=== PATIENT | female | born 1955 | race Caucasian/White ===

== ENCOUNTER → 2016-09-19 | Outpatient (CLI) | payer BC ==
[~2016-09-19] MED LIST: GASTROGRAFIN SOLUTION 30ML (Q9963) As Ordered ONE; READI-CAT 2 As Ordered ONE
--- NOTE | 2016-09-19 11:53 | REP ---
Clinical: History of rectal cancer with partial rectosigmoid resection. Comparison: 07/19/2016. Findings: The lung bases are well aerated and clear without pulmonary parenchymal consolidation, nodule or mass. No pleural effusion/reaction. Visualized portions of the heart and pericardium normal. Liver, spleen, pancreas, bilateral adrenal glands and kidneys are normal for noncontrast evaluation. The patient is status post cholecystectomy as well as abdominal surgery including partial resection and anastomosis at the level of the distal rectosigmoid colon. Scattered diverticula noted without acute diverticulitis. There is no evidence for bowel obstruction. Very subtle fat stranding is identified at the region of the hepatic flexure (images 47 - 57) which is nonspecific and may represent sequelae of prior colitis. At the level of the prior partial resection and anastomoses there is surrounding pericolonic stranding as well as small foci of what appeared to be extraluminal, but contained gas (images 114 - 127) which likely represent sequelae of prior surgery. These findings can not be compared to prior examination as previous exam was performed prior to surgery and cannot be used as baseline. No definite significant adenopathy or recurrent mass lesion is appreciated. Partially calcified retroperitoneal lymph nodes are similar to prior examination and may represent sequelae of prior therapy or chronic granulomas disease. Further evaluation of the pelvis demonstrates normal partially collapsed bladder and age-appropriate uterus/adnexa. No ascites. Soft tissue stranding in the midline anterior abdominal wall likely represents postsurgical granulation tissue (images 84 - 105). Musculoskeletal structures demonstrate age-related degenerative changes without focal osseous abnormality. Atherosclerotic changes to the aorta and common iliac arteries noted without aneurysm. Impression: 1. Postsurgical changes as described above predominate within the pelvis and adjacent to the site of prior distal rectosigmoid resection/anastomoses related to neoplasm. No postsurgical baseline CT is available for comparison and while these findings likely reflect postsurgical changes, metastatic disease and/or recurrence cannot definitively be excluded. Follow-up examination may be warranted. 2. Partially calcified retroperitoneal lymph node similar to prior examination may reflect sequelae of prior therapy. Signed by Al Richard MD 09/19/2016 11:44 A
== END ==
LOC: M RAD 10:04
PROVIDERS: ATTEND Internal Medicine
DX: C20 Malignant neoplasm of rectum (principal)
CPT/HCPCS: 74176; Q9963

== ENCOUNTER → 2017-04-05 | Outpatient (CLI) | payer BC ==
[~2017-04-05] MED LIST changes: +ISOVUE-370 76% 100ML VIAL (Q9967) As Ordered ONE; -READI-CAT 2 As Ordered ONE
[2017-04-05 13:25] LABS: BASO % 1.2 % (0.0-1.0); EOS # 0.1 K/mm3 (0.0-0.50); EOS % 3.6 % (0.0-3.0); LYMPH # 0.5 K/mm3 (1.5-4.5); LYMPH % 11.9 % (24.0-44.0); MEAN CORPUSCULAR HEMOGLOBIN 32.8 pg (27.0-33.0); MEAN CORPUSCULAR HGB CONC 34.1 g/dl (32.0-36.5); MEAN CORPUSCULAR VOLUME 96.1 fl (80.0-96.0); MONO # 0.4 K/mm3 (0.0-0.8); MONO % 12.7 % (0.0-5.0); NEUTROPHILS # 2.1 K/mm3 (1.8-7.7); NEUTROPHILS % 65.3 % (36.0-66.0); RED CELL DISTRIBUTION WIDTH 16.3 % (11.5-14.5); WHITE BLOOD COUNT 3.2 K/mm3 (4.0-10.0)
[2017-04-05 13:34] LABS: ALBUMIN/GLOBULIN RATIO 0.86 (1.00-1.93); ALKALINE PHOSPHATASE 88 U/L (45-117); ALT/SGPT 29 U/L (12-78); ANION GAP 9 MEQ/L (8-16); AST/SGOT 33 U/L (15-37); BILIRUBIN,TOTAL 0.3 MG/DL (0.2-1.0); BLOOD UREA NITROGEN 5 MG/DL (7-18); CALCIUM LEVEL 9.1 MG/DL (8.8-10.2); CARBON DIOXIDE LEVEL 29 MEQ/L (21-32); CHLORIDE LEVEL 102 MEQ/L (98-107); CREATININE FOR GFR 0.75 MG/DL (0.55-1.02); GLOMERULAR FILTRATION RATE > 60.0 (>45); GLUCOSE, FASTING 101 MG/DL (80-110); POTASSIUM SERUM 3.9 MEQ/L (3.5-5.1); SODIUM LEVEL 140 MEQ/L (136-145); TOTAL PROTEIN 6.5 GM/DL (6.4-8.2)
[2017-04-06 12:08] LABS: CARCINOEMBRYONIC ANTIGEN 1.6 NG/ML (<2.5)
--- NOTE | 2017-04-06 14:33 | REP ---
Clinical: Rectal carcinoma for restaging. Technique: Axial contrast enhanced images from the lung bases to the pubic symphysis new oozing oral and 100 ml Isovue 370 intravenous contrast material with precontrast and delayed images of the abdomen as well as coronal and sagittal re-formations. Comparison: 07/19/2016. Findings: Lung bases are clear. Visualized heart and pericardium within normal limits. Liver, spleen, pancreas, bilateral adrenal glands and kidneys are normal. The patient is status post cholecystectomy. The enteric system is without obstruction or definite acute inflammatory process. Subtle mural thickening involving the sigmoid colon with subtle stranding in the adjacent pelvis and evidence for prior partial sigmoid resection most compatible with post radiation type changes. Collapsed bladder is unremarkable. Uterus and adnexa are normal for age. Chronic calcified lesion in the posterior left pb pelvis (image 107) remains unchanged. Atherosclerotic changes to the aorta and vasculature noted without aneurysm. Multiple calcified retroperitoneal lymph nodes consistent with post-therapeutic change. Post surgical granulomatous changes in the periumbilical subcutaneous tissue. No ascites. No free air. No obvious acute adenopathy or mass lesion identified. Musculoskeletal structures demonstrate degenerative changes without focal osseous abnormality. Impression: 1. Postradiation, post-therapeutic and postsurgical changes as described above. No evidence for acute adenopathy, new mass lesion, or ascites appreciated. 2. Chronic changes as described above. Signed by Al Richard MD 04/06/2017 12:08 A
--- NOTE | 2017-04-06 14:33 | REP ---
Clinical: Rectal carcinoma for restaging. Technique: Axial contrast enhanced images from the thoracic inlet to the upper abdomen using 100 ml Isovue 370 intravenous contrast material with coronal and sagittal re-formations. Comparison: 07/19/2016. Findings: The bilateral lung carrillo are well-aerated, symmetric and clear. No focal consolidation, nodule or mass lesion. No pleural effusion/reaction or pneumothorax. Tracheobronchial tree is patent. No axillary, hilar, or mediastinal adenopathy. Atherosclerotic changes to the coronary arteries and thoracic aorta noted without aortic aneurysm, cardiomegaly, or pericardial effusion. Right-sided [id number] with tip in the SVC. Surrounding musculoskeletal structures without focal osseous abnormality. Impression: No acute mediastinal or pleuroparenchymal process appreciated. Signed by Al Richard MD 04/05/2017 11:56 P
== END ==
LOC: M LAB 12:15 → M RAD 12:15
PROVIDERS: ATTEND Internal Medicine
DX: C20 Malignant neoplasm of rectum (principal)
CPT/HCPCS: 36415; 71260; 74178; 80053; 82378; 85027; Q9963; Q9967

== ENCOUNTER → 2017-07-05 | Outpatient (CLI) | payer BC | LOC: M LAB 10:38 | PROVIDERS: ATTEND Family Medicine | DX: Z00.00 Encounter for general adult medical examination without abnormal findings (principal); I10 Essential (primary) hypertension; Z23 Encounter for immunization; C20 Malignant neoplasm of rectum ==

== ENCOUNTER → 2017-07-05 | Outpatient (CLI) | payer BC ==
[2017-07-05 11:56] LABS: BASO # 0.1 10^3/uL (0.0-0.2); BASO % 0.9 % (0.0-1.0); EOS # 0.2 10^3/uL (0.0-0.50); EOS % 3.5 % (0.0-3.0); IMMATURE GRANULOCYTE % 0.3 % (0-0); LYMPH # 0.5 10^3/uL (1.5-4.5); MEAN CORPUSCULAR HEMOGLOBIN 31.9 pg (27.0-33.0); MEAN CORPUSCULAR HGB CONC 33.3 g/dl (32.0-36.5); MONO # 0.7 10^3/uL (0.0-0.8); MONO % 10.6 % (0.0-5.0); NEUTROPHILS % 76.7 % (36.0-66.0); PLATELET COUNT, AUTOMATED 209 10^3/uL (150-450); RED CELL DISTRIBUTION WIDTH 12.6 % (11.5-14.5); WHITE BLOOD COUNT 6.5 10^3/uL (4.0-10.0)
[2017-07-05 12:33] LABS: ALBUMIN 3.5 GM/DL (3.2-5.2); ALBUMIN/GLOBULIN RATIO 0.97 (1.00-1.93); ALKALINE PHOSPHATASE 74 U/L (45-117); ALT/SGPT 22 U/L (12-78); ANION GAP 5 MEQ/L (8-16); AST/SGOT 15 U/L (7-37); BILIRUBIN,TOTAL 0.3 MG/DL (0.2-1.0); BLOOD UREA NITROGEN 12 MG/DL (7-18); CALCIUM LEVEL 9.3 MG/DL (8.8-10.2); CARBON DIOXIDE LEVEL 36 MEQ/L (21-32); CHLORIDE LEVEL 100 MEQ/L (98-107); CREATININE FOR GFR 0.65 MG/DL (0.55-1.02); GLOMERULAR FILTRATION RATE > 60.0 (>45); GLUCOSE, FASTING 85 MG/DL (80-110); SODIUM LEVEL 141 MEQ/L (136-145); TOTAL PROTEIN 7.1 GM/DL (6.4-8.2)
--- NOTE | 2017-07-05 13:12 | REP ---
Clinical: History of rectal carcinoma for restaging and follow-up. Technique: Axial contrast enhanced images from the lung bases to the pubic symphysis using oral (per protocol) and 100 ml Isovue 370 intravenous contrast material with precontrast images of the abdomen as well as coronal and sagittal re-formations. Comparison: 04/05/2017. Findings: The lung bases are clear. Visualized heart and pericardium are normal. Liver, spleen, pancreas, bilateral adrenal glands and kidneys are normal. The patient is status post cholecystectomy. The enteric system is without obstruction or acute inflammatory process. There is evidence for partial resection and anastomoses at the rectosigmoid level without adjacent mass to suggest recurrence. There is nonspecific chronic and/or inflammatory stranding within the pelvis extending to the level of the rectum without pelvic fluid or drainable collection. Small pelvic lymph nodes cannot be excluded but no obvious, significant adenopathy or pelvic mass lesion is appreciated. The uterus and adnexa are grossly normal and stable. No ascites. No free air. Partially calcified retroperitoneal lymph nodes likely represent post-therapeutic type changes. Atherosclerotic changes of the aorta and vasculature noted without aneurysm. Musculoskeletal structures demonstrate degenerative changes without focal osseous abnormality. Midline periumbilical scar remains stable. Impression: Stranding in the pelvis and small pelvic lymph nodes are nonspecific findings and should be correlated with possible prior radiation therapy. There is no evidence for recurrent lesion at the site of anastomosis and no significant adenopathy is appreciated. No free fluid or drainable collection. Signed by Al Richard MD 07/05/2017 01:04 P
[2017-07-06 09:36] LABS: CARCINOEMBRYONIC ANTIGEN 1.2 NG/ML (<2.5)
== END ==
LOC: M RAD 10:54
PROVIDERS: ATTEND Internal Medicine
DX: C20 Malignant neoplasm of rectum (principal)
CPT/HCPCS: 74178; 80053; 82378; 85027; Q9963; Q9967

== ENCOUNTER → 2018-01-08 | Outpatient (CLI) | payer BC ==
[~2018-01-08] MED LIST changes: +GASTROGRAFIN SOLUTION 30ML (Q9963) As Ordered; -GASTROGRAFIN SOLUTION 30ML (Q9963) As Ordered ONE; +ISOVUE-370 76% 100ML VIAL (Q9967) As Ordered; -ISOVUE-370 76% 100ML VIAL (Q9967) As Ordered ONE
== END ==
LOC: M RAD 10:59
DX: C20 Malignant neoplasm of rectum (principal); R19.7 Diarrhea, unspecified
CPT/HCPCS: Q9963

== ENCOUNTER → 2018-07-12 | Outpatient (CLI) | payer BC | LOC: M RAD 11:30 | DX: C20 Malignant neoplasm of rectum (principal); R19.7 Diarrhea, unspecified; R59.0 Localized enlarged lymph nodes | CPT/HCPCS: Q9963 ==

== ENCOUNTER → 2018-07-13 | Outpatient (CLI) | payer BC | LOC: M WUC 16:18 | DX: M20.11 Hallux valgus (acquired), right foot (principal); M19.071 Primary osteoarthritis, right ankle and foot; M79.674 Pain in right toe(s) | CPT/HCPCS: 73660 ==

== ENCOUNTER → 2018-07-31 | Outpatient (CLI) | payer BC ==
--- NOTE | 2018-07-31 14:41 | REP ---
PET/CT: HISTORY: Initial staging, malignant neoplasm of the rectum. COMPARISONS: Comparison CT study July 12, 2018. TECHNIQUE: 44 minutes following the intravenous injection of a 8.6 mCi dose of F-18 FDG, three-dimensional PET scintigraphy is acquired from the skull base to the proximal thighs. Triplanar noncontrast CT scanning is acquired through the same anatomic range for attenuation correction, and image registration with scan parameters optimized to minimize radiation exposure to the patient. PET scintigraphy and CT datasets were fused and displayed on a workstation with multiplanar and projection display capability. PET/CT FINDINGS: The recently identified right pericaval retroperitoneal lymphadenopathy is noted to be hypermetabolic on PET-CT study. Maximum standard uptake value is 5.9. There is a smaller normal size right pericaval lymph node with maximum standard uptake value 3.0. The right common iliac chain lymphadenopathy identified recently is also hypermetabolic. Maximum standard uptake value in this is 8.3. There are multiple densely calcified non hypermetabolic lymph nodes as seen on CT study. No other abnormal hypermetabolic uptake is seen in the abdomen or pelvis. No abnormal hypermetabolic uptake is noted in the liver or spleen. No adrenal hypermetabolic uptake is seen. The patient is status post cholecystectomy. In the chest, there is no abnormal hilar or mediastinal or pulmonary parenchymal hypermetabolic uptake. Head and neck soft tissues are unremarkable. There is a right-sided [id number] catheter. IMPRESSION: Right pericaval retroperitoneal and right common iliac lymphadenopathy is hypermetabolic. No other hypermetabolic uptake is seen. Non hypermetabolic densely calcified and nodes are noted as seen previously. Electronically Signed by Bhanu Bravo MD 07/31/2018 03:13 P
== END ==
LOC: M PLARAD 09:52
PROVIDERS: ATTEND Internal Medicine
DX: C20 Malignant neoplasm of rectum (principal); R19.7 Diarrhea, unspecified
CPT/HCPCS: 78815; A9552

== ENCOUNTER → 2018-10-28 | Outpatient (CLI) | payer BC ==
[~2018-10-28] MED LIST changes: -GASTROGRAFIN SOLUTION 30ML (Q9963) As Ordered; +GASTROGRAFIN SOLUTION 30ML (Q9963) As Ordered ONE; -ISOVUE-370 76% 100ML VIAL (Q9967) As Ordered; +ISOVUE-370 76% 125ML VIAL (Q9967 PER ML) As Ordered ONE
--- NOTE | 2018-10-28 11:53 | REP ---
CT ABDOMEN AND PELVIS WITH IV AND ORAL CONTRAST: HISTORY: Restaging rectal carcinoma. COMPARISON: PET/CT July 31, 2018. Comparison CT abdomen and pelvis is from July 12, 2018. CT CONTRAST DOSE: 100 mL of intravenous Isovue 370. CT FINDINGS: Preliminary digital sales secretary radiograph shows an unremarkable bowel gas pattern. The lung bases remain clear. No pulmonary nodule or infiltrate is seen in the lung bases. There is moderate diffuse fatty infiltration of the liver again noted with some areas of sparing in the left lobe. The gallbladder is surgically absent with clips in the gallbladder fossa. No focal hepatic mass lesion is seen. The spleen is normal in size homogeneous in texture. No adrenal lesion is observed. No pancreatic abnormality is observed. The kidneys enhance symmetrically and are morphologically intact. There are scattered calcified retroperitoneal lymph nodes again noted unchanged. The previously noted hypermetabolic nodes in the pericaval lymph node chain and right iliac lymph node chain are again seen. The pericaval lymph node measured 20 x 18 mm previously, today its dimensions are 17 x 13 mm. The right common iliac lymph node seen previously has decreased in size as well. There are adjacent normal-sized a right iliac lymph nodes unchanged. No new adenopathy is appreciated. Anastomotic suture line is visible in the rectum. Normal-sized inguinal lymph nodes are again noted. Small and large bowel loops are otherwise unremarkable. No bony lesion is seen. IMPRESSION: Slight interval decrease in the size of the periaortic lymph node noted previously. Interval decrease in the size of the right common iliac chain lymph node as well. No new adenopathy. Electronically Signed by Bhanu Bravo MD 10/28/2018 12:10 P
== END ==
LOC: M RAD 08:45
PROVIDERS: ATTEND Internal Medicine
DX: C20 Malignant neoplasm of rectum (principal); R19.7 Diarrhea, unspecified
CPT/HCPCS: 74177; Q9963; Q9967

== ENCOUNTER → 2019-01-06 | Outpatient (CLI) | payer BC ==
[~2019-01-06] MED LIST changes: +ISOVUE-370 76% 100ML VIAL (Q9967) As Ordered ONE; -ISOVUE-370 76% 125ML VIAL (Q9967 PER ML) As Ordered ONE
--- NOTE | 2019-01-08 06:39 | REP ---
Clinical: Restaging rectal carcinoma. Comparison: 10/28/2018, 07/12/2018 Technique: Axial contrast enhanced images from the thoracic inlet to the upper abdomen with coronal and sagittal re-formations using 100 ml Isovue 370 intravenous contrast material. Findings: Bilateral lung carrillo are well-aerated and clear. No consolidation, significant nodule or mass lesion. No pleural effusion. No pneumothorax. Tracheobronchial tree is patent. No axillary, hilar, or mediastinal adenopathy. Mediastinum demonstrates minimal atherosclerotic changes to the thoracic aorta and coronary arteries without aortic aneurysm/dissection, cardiomegaly or pericardial effusion. Surrounding musculoskeletal structures are intact. Impression: No acute mediastinal or pleuroparenchymal process appreciated. Specifically, no evidence for metastatic disease. Electronically Signed by Al Richard MD 01/08/2019 06:31 A
--- NOTE | 2019-01-08 06:50 | REP ---
Clinical: Restaging rectal carcinoma. Comparison: 10/28/2018, 07/12/2018 Technique: Axial contrast enhanced images from the lung bases to the pubic symphysis using oral (per protocol) and 100 ml Isovue 370 intravenous contrast material along with precontrast and delayed images of the abdomen as well as coronal and sagittal re-formations. Findings: Fatty infiltration to the liver noted without focal hepatic lesion. Spleen, pancreas, bilateral adrenal glands, and kidneys are normal. Evidence of prior cholecystectomy. The enteric system is without obstruction or acute inflammatory process. Partial resection and anastomoses at the rectosigmoid is again identified. Pelvis demonstrates normal bladder and age-appropriate uterus/adnexa. No ascites. No focal inflammatory stranding is appreciated. Primarily calcified retroperitoneal lymph nodes are identified with few nonspecific noncalcified retroperitoneal and pelvic lymph nodes measuring up to approximately 9 mm. No obvious recurrent mass lesion. Atherosclerotic changes to the aorta noted without aneurysm or dissection. Musculoskeletal structures demonstrate degenerative changes without focal osseous abnormality. Impression: 1. Few nonspecific retroperitoneal and pelvic lymph nodes measuring up to approximately 9 mm. 2. Evidence of prior cholecystectomy and partial distal sigmoid resection with anastomosis at the rectosigmoid level. No obvious recurrent focal mass lesion. 3. No ascites. Electronically Signed by Al Richard MD 01/08/2019 06:42 A
== END ==
LOC: M RAD 12:35
PROVIDERS: ATTEND Internal Medicine
DX: C20 Malignant neoplasm of rectum (principal); R19.7 Diarrhea, unspecified; Z90.49 Acquired absence of other specified parts of digestive tract; Z98.0 Intestinal bypass and anastomosis status
CPT/HCPCS: 71260; 74178; Q9963; Q9967

== ENCOUNTER → 2019-04-15 | Outpatient (CLI) | payer BC ==
[~2019-04-15] MED LIST changes: -ISOVUE-370 76% 100ML VIAL (Q9967) As Ordered ONE
--- NOTE | 2019-04-15 16:33 | REP ---
CT of the abdomen and pelvis without and with contrast Indication: Restaging metastatic rectal cancer. Comparison: CT of the abdomen pelvis of 01/06/[address] of 07/31/2018. Technique: Axial CT of the abdomen was performed without contrast. Following the uneventful intravenous administration of 100 ml Isovue 370, CT of the abdomen pelvis with contrast was performed. Oral contrast media was administered. Coronal and sagittal reformatted images were provided. Findings: The liver is normal in size and without focal lesion. The gallbladder surgically absent. The spleen, adrenal glands, pancreas and kidneys are within normal limits. There is fullness of the renal pelves. There is no hydronephrosis or nephrolithiasis. There are atherosclerotic calcifications of the abdominal aorta and its branches. There are calcified retroperitoneal lymph nodes, similar to prior. There are no newly enlarged lymph nodes. The stomach is partially distended and unremarkable. Loops of small and large bowel are incompletely opacified but normal in caliber. The distal colonic anastomoses is intact. There is an unchanged calcified mass within the left hemipelvis. There is no intraperitoneal free air or free fluid. The uterus and ovaries are unremarkable. The urinary bladder is partially distended. There is lumbar spondylosis. No suspicious focal osseous lesion is identified. Impression: Prior colonic resection with intact anastomoses. Similar appearance of calcified retroperitoneal lymph nodes. No evidence of recurrence within the abdomen or pelvis. Electronically Signed by Lexie Reno MD 04/15/2019 04:24 P
--- NOTE | 2019-04-15 16:33 | REP ---
CT of the chest with contrast Indication: Restaging metastatic rectal cancer. Comparison: CT chest of 01/06/2019. Technique: CT of the chest was performed from the thoracic inlet to the upper abdomen following the uneventful intravenous administration of 100 ml Isovue 370. Coronal and sagittal soft tissue reformatted images and axial lung reformatted images were provided. Findings: The tip of a central venous catheter terminates within the superior vena cava. Heart size is normal. There are coronary calcifications. No pericardial effusion. The upper airway is patent. There is no suspicious pulmonary nodule. The lungs are clear. There is no pleural effusion. There is no axillary or mediastinal lymphadenopathy. The there is partially imaged. No suspicious focal osseous lesion. Impression: No evidence of metastatic disease within the chest. Electronically Signed by Lexie Reno MD 04/15/2019 04:23 P
== END ==
LOC: M RAD 12:24
PROVIDERS: ATTEND Internal Medicine Hematology & Oncology
DX: C20 Malignant neoplasm of rectum (principal)
CPT/HCPCS: 71260; 74178; Q9963

== ENCOUNTER → 2019-06-14 | Outpatient (CLI) | payer BC ==
[2019-06-14 16:40] LABS: BASO # 0.1 10^3/uL (0.0-0.2); BASO % 0.8 % (0.0-1.0); EOS # 0.4 10^3/uL (0.0-0.5); EOS % 6.6 % (0.0-3.0); LYMPH # 1.1 10^3/uL (1.5-5.0); LYMPH % 16.1 % (24.0-44.0); MEAN CORPUSCULAR HEMOGLOBIN 32.9 pg (27.0-33.0); MEAN CORPUSCULAR HGB CONC 32.6 g/dl (32.0-36.5); MEAN CORPUSCULAR VOLUME 101.2 fl (80.0-96.0); MONO # 1.1 10^3/uL (0.0-0.8); MONO % 17.3 % (0.0-5.0); NEUTROPHILS # 3.9 10^3/uL (1.5-8.5); NEUTROPHILS % 58.9 % (36.0-66.0); PLATELET COUNT, AUTOMATED 184 10^3/uL (150-450); RED BLOOD COUNT 4.25 10^6/uL (4.00-5.40); WHITE BLOOD COUNT 6.5 10^3/uL (4.0-10.0)
[2019-06-14 16:49] LABS: ALBUMIN 3.3 GM/DL (3.2-5.2); ALT/SGPT 31 U/L (12-78); BILIRUBIN,TOTAL 0.3 MG/DL (0.2-1.0); BLOOD UREA NITROGEN 9 MG/DL (7-18); CARBON DIOXIDE LEVEL 33 MEQ/L (21-32); CHLORIDE LEVEL 104 MEQ/L (98-107); CREATININE FOR GFR 0.67 MG/DL (0.55-1.30); GLOMERULAR FILTRATION RATE > 60.0 (>45); GLUCOSE, FASTING 98 MG/DL (70-100); MAGNESIUM LEVEL 1.7 MG/DL (1.8-2.4); POTASSIUM SERUM 3.8 MEQ/L (3.5-5.1); SODIUM LEVEL 143 MEQ/L (136-145); TOTAL PROTEIN 6.7 GM/DL (6.4-8.2)
== END ==
LOC: M WUC 15:12
PROVIDERS: ATTEND Internal Medicine Hematology & Oncology
DX: C20 Malignant neoplasm of rectum (principal); R19.7 Diarrhea, unspecified

== ENCOUNTER → 2019-07-21 | Outpatient (CLI) | payer BC ==
[~2019-07-21] MED LIST changes: +ISOVUE-370 76% 100ML VIAL (Q9967) As Ordered ONE
--- NOTE | 2019-07-21 14:56 | REP ---
CT CHEST WITH IV CONTRAST: TECHNIQUE: Axial contrast enhanced images from the thoracic inlet to the upper abdomen using 100 mL Isovue 370 intravenous contrast material with multiplanar reformations. COMPARISON: 04/15/2019. The lungs are free of infiltrate. No suspicious nodular opacity is seen. There is no mediastinal, hilar, or chest wall lymphadenopathy. There is no pleural or pericardial effusion. Heart is upper limits of normal in size. There is no evidence of aneurysm of the thoracic aorta with mild atherosclerotic calcification. There are degenerative changes of the spine. IMPRESSION: No evidence of pulmonary nodule, mass or adenopathy, with no change since prior study 04/15/2019. Electronically Signed by Ender Abarca MD 07/22/2019 03:56 P
--- NOTE | 2019-07-21 15:12 | REP ---
CT ABDOMEN AND PELVIS WITH ORAL AND IV CONTRAST: TECHNIQUE: Axial contrast enhanced images from the lung bases to the pubic symphysis using 100 mL Isovue 370 intravenous contrast material with multiplanar reformations. COMPARISON: Multiple prior exams, most recently 04/15/2019. No mass is seen in the liver. There appears to be some degree of fatty infiltration. The patient has had a prior cholecystectomy. There is no biliary dilatation. The spleen is normal in size with no intrinsic abnormality. The adrenal glands are normal. No pancreatic mass is seen. The kidneys demonstrate no mass or hydronephrosis. There is moderate atherosclerotic calcification of the abdominal aorta without aneurysm. Calcified retroperitoneal lymph nodes are again noted unchanged. No new adenopathy is seen. No free air or free fluid is seen. No bowel wall thickening is seen. Rectosigmoid anastomosis appears unremarkable. No pelvic mass is seen. Urinary bladder is not well-distended and not well evaluated. There are degenerative changes of the spine. IMPRESSION: No new mass or adenopathy. No significant change compared to prior studies. Electronically Signed by Ender Abarca MD 07/22/2019 03:56 P
== END ==
LOC: M RAD 12:12
PROVIDERS: ATTEND Internal Medicine Hematology & Oncology
DX: C20 Malignant neoplasm of rectum (principal); R19.7 Diarrhea, unspecified
CPT/HCPCS: 71260; 74177; Q9963; Q9967

== ENCOUNTER → 2019-10-27 | Outpatient (CLI) | payer BC ==
--- NOTE | 2019-10-27 14:13 | REP ---
Clinical: Restaging metastatic colon cancer. Technique: Axial contrast enhanced images from the thoracic inlet to the upper abdomen with coronal and sagittal re-formations using 100 ml Isovue 370 intravenous contrast material. Comparison: 07/21/2019. Findings: The bilateral lung carrillo are well-aerated. A 1.5 cm nodular density along the anterobasilar right middle lobe (image 63) versus focal scarring cannot be excluded or differentiated and represents a change from prior examinations. No further consolidation, nodule or mass lesion. No pleural effusion. No pneumothorax. Tracheobronchial tree is patent. No obvious adenopathy. Mediastinum demonstrates atherosclerotic changes to the thoracic aorta and coronary arteries without aortic aneurysm, dissection or cardiomegaly. No pericardial effusion. Musculoskeletal structures demonstrate stable degenerative changes. Impression: 1. 1.5 cm nodular density versus scarring in the anterobasilar right middle lobe. Short-term follow-up examination is recommended. 2. No further acute mediastinal or pleuroparenchymal process appreciated. Electronically Signed by Al Richard MD 10/27/2019 02:05 P
--- NOTE | 2019-10-27 14:17 | REP ---
Clinical: Restaging metastatic colon cancer. Technique: Axial contrast enhanced images from the lung bases to the pubic symphysis using oral (per protocol) and 100 ml Isovue 370 intravenous contrast material with coronal and sagittal re-formations as well as delayed images of the abdomen. Comparison: 07/21/2019. Findings: Fatty infiltration to the liver noted without focal hepatic lesion. Spleen, pancreas, bilateral adrenal glands and kidneys are normal. Prior cholecystectomy noted. The enteric system is without obstruction or acute inflammatory process. Evidence for prior partial sigmoid resection and anastomoses identified in the pelvis without adjacent mass or adenopathy. Pelvis demonstrates normal bladder and age-appropriate uterus/adnexa. No ascites. No free air. No intraperitoneal or retroperitoneal adenopathy. Calcified retroperitoneal lymph nodes consistent with prior therapy. Atherosclerotic changes to the aorta and vasculature without aneurysm or dissection. Musculoskeletal structures demonstrate degenerative changes. Impression: 1. No obvious metastatic disease or recurrence. 2. Hepatic steatosis. 3. No further acute abdominopelvic pathology appreciated. Electronically Signed by Al Richard MD 10/27/2019 02:09 P
== END ==
LOC: M RAD 12:08
PROVIDERS: ATTEND Internal Medicine Hematology & Oncology
DX: C20 Malignant neoplasm of rectum (principal); R19.7 Diarrhea, unspecified
CPT/HCPCS: 71260; 74177; Q9963; Q9967

== ENCOUNTER → 2019-11-11 | Outpatient (CLI) | payer BC ==
--- NOTE | 2019-11-11 15:23 | REP ---
PET/CT: HISTORY: Restaging rectal cancer. Metastatic colon carcinoma on chemotherapy. COMPARISONS: Comparison PET/CT study July 31, 2018. TECHNIQUE: 55 minutes following the intravenous injection of a 9.01 mCi dose of F-18 FDG, three-dimensional PET scintigraphy is acquired from the skull base to the proximal thighs. Triplanar noncontrast CT scanning is acquired through the same anatomic range for attenuation correction, and image registration with scan parameters optimized to minimize radiation exposure to the patient. PET scintigraphy and CT datasets were fused and displayed on a workstation with multiplanar and projection display capability. PET/CT FINDINGS: Head and neck soft tissues are unremarkable. There is no evidence of axillary or supraclavicular hypermetabolic adenopathy. No hilar or mediastinal hypermetabolic adenopathy is seen. There is an air-fluid level in the thoracic esophagus question reflux. No abnormal hypermetabolic uptake is seen at the GE junction. In the abdomen and pelvis, normal hepatic, splenic, gastrointestinal, and genitourinary tracer distribution is seen. The previously noted hypermetabolic adenopathy has resolved. No abnormal hypermetabolic uptake is seen in the abdomen or pelvis. No abnormal pulmonary parenchymal hypermetabolic uptake is seen. No suspicious pulmonary parenchymal opacity is observed. No abnormal skeletal hypermetabolic uptake is seen. There is some arthropathy associated periarticular soft tissue uptake in the shoulders bilaterally. IMPRESSION: Negative PET scintigraphy. Previously noted sebastian hypermetabolic uptake has resolved. Electronically Signed by Bhanu Bravo MD 11/11/2019 04:37 P
== END ==
LOC: M PLARAD 09:06
PROVIDERS: ATTEND Internal Medicine Hematology & Oncology
DX: Z85.048 Personal history of other malignant neoplasm of rectum, rectosigmoid junction, and anus (principal); Z92.21 Personal history of antineoplastic chemotherapy
CPT/HCPCS: 78815; A9552

== ENCOUNTER → 2020-02-16 | Outpatient (CLI) | payer BC ==
[~2020-02-16] MED LIST changes: -ISOVUE-370 76% 100ML VIAL (Q9967) As Ordered ONE; +ISOVUE-370 76% 100ML VIAL As Ordered ONE
--- NOTE | 2020-02-16 13:35 | REP ---
REASON: History of metastatic colon carcinoma. All priors were reviewed, the latest is 10/27/2019. CONTRAST: 100 mL Isovue 370. The mediastinum and pulmonary melissa are stable showing no evidence of a mass or adenopathy. There are no pleural or pericardial effusions. The imaged osseous structures are stable and intact. Evaluation of the lung carrillo shows marked improvement/near solution and a small opacity in the inferior right middle lobe. The lung carrillo are essentially unchanged when compared to the 07/21/2019 exam. No new abnormal nodules, masses, or opacities are present. IMPRESSION: Improvement and stability as described above. Electronically Signed by Mani Stanford DO 02/16/2020 02:29 P
--- NOTE | 2020-02-16 13:43 | REP ---
REASON: Followup metastatic colon carcinoma. All priors were reviewed, the latest is 10/27/2019. CONTRAST: 100 mL Isovue 370. The liver, spleen, pancreas, adrenal glands and kidneys are unchanged. Once again, there is evidence of a regenerating nodule in the lateral segment of the left lobe of the liver. This was seen on the 04/15/2019 CT. No new enhancing hepatic lesions are present. The patient is status post cholecystectomy and appendectomy. The abdominal aorta and para-aortic regions are unchanged. Calcified para-aortic lymph nodes are noted status quo. The bowel loops and their mesenteries are essentially unchanged. Postop changes are again seen involving the sigmoid colon status quo. No free fluid or free air is seen in the abdomen or pelvis. There is no evidence of an intra-abdominal or intrapelvic mass or adenopathy. Bone window technique through the examination shows the osseous structures to be stable and intact. IMPRESSION: No significant change when compared to the prior exam as described above. There is no evidence of acute intra-abdominal or intrapelvic disease. Electronically Signed by Mani Stanford DO 02/16/2020 02:29 P
== END ==
LOC: M RAD 08:01
PROVIDERS: ATTEND Internal Medicine Hematology & Oncology
DX: C20 Malignant neoplasm of rectum (principal); R19.7 Diarrhea, unspecified; Z90.49 Acquired absence of other specified parts of digestive tract; Z90.89 Acquired absence of other organs
CPT/HCPCS: 71260; 74177; Q9963; Q9967

== ENCOUNTER → 2020-05-11 | Outpatient (CLI) | payer BC ==
--- NOTE | 2020-05-14 10:02 | REP ---
CT CHEST WITH IV CONTRAST: HISTORY: Rectal carcinoma. Metastatic colon cancer currently on maintenance therapy. Diarrhea. COMPARISON: Chest CT 02/16/2020 CT CONTRAST DOSE: 100ml of intravenous Isovue 370. CT FINDINGS: Digital preliminary hospital nursing assistant view is unremarkable. There is a right sided [id number] catheter. No pleural or pericardial effusion is seen. There is diffuse fatty infiltration to the liver. Air filled esophagus is noted at the time of the scan suggestive of reflux. No hilar or mediastinal mass or adenopathy is observed. No pulmonary mass lesion, infiltrate, or significant pulmonary nodule is appreciated. Mild pleuroparenchymal fibrosis persists in the right middle lobe unchanged from the 02/16/20 study. No bony destructive lesion is seen. No extra thoracic mass or adenopathy is appreciated. IMPRESSION: Stable pleuroparenchymal scarring right middle lobe. No new mass or adenopathy see. MTDD
--- NOTE | 2020-05-14 10:04 | REP ---
CT ABDOMEN AND PELVIS WITH IV AND ORAL CONTRAST HISTORY: Rectal carcinoma. Metastatic colon cancer currently on maintenance chemotherapy. Diarrhea. COMPARISON: Abdomen CT study February 16, 2020. CT CONTRAST DOSE: 100 mL of intravenous Isovue-[address] FINDINGS: There is mild to moderate diffuse fatty infiltration of the liver with a geographic area of sparing in the left lobe of the liver. This is unchanged. No focal splenic lesion or focal hepatic lesion seen. Normal adrenals are seen. No pancreatic mass or cyst is observed. The gallbladder is surgically absent. No periaortic or retroperitoneal mass or adenopathy is seen. There is a densely calcified granulomatous lymph node in the left common iliac lymph node chain which is unchanged. There are densely calcified granulomatous left periaortic lymph nodes also noted unchanged. Uterus is tipped somewhat to the right. No pelvic mass or adenopathy is seen. There is mural thickening in the right colon involving the cecum and ascending colon which may reflect some degree of enterocolitis. The distal ileum is not involved nor is any of the rest of the small bowel. The remaining colon shows no evidence of mural thickening. There is a rectal anastomotic suture line. No mass lesion is seen. Densely calcified enlarged lymph node is noted in the left external iliac lymph node chain unchanged from the comparison study and measuring 3.3 cm. No new adenopathy. No abdominal wall defect or bony destructive lesion. IMPRESSION: Stable iliac and periaortic lymph node calcifications. Fatty infiltration of the liver. No evidence of new mass or metastases or new adenopathy. There is mural thickening in the cecum and ascending colon which may reflect enterocolitis. No colonic mass lesion is observed. MTDD
== END ==
LOC: M RAD 11:51
PROVIDERS: ATTEND Internal Medicine Hematology & Oncology
DX: C20 Malignant neoplasm of rectum (principal); R19.7 Diarrhea, unspecified; R91.8 Other nonspecific abnormal finding of lung field; K76.0 Fatty (change of) liver, not elsewhere classified
CPT/HCPCS: 71260; 74177; Q9963; Q9967

== ENCOUNTER → 2020-08-16 | Outpatient (CLI) | payer BC ==
--- NOTE | 2020-08-16 14:38 | REP ---
INDICATION: RESTAGING MET RECTAL CA- WITH IV AND ORAL CONTRAST COMPARISON: 05/11/2020 TECHNIQUE: Axial contrast enhanced images from the thoracic inlet to the upper abdomen with subsequent CT of the abdomen and pelvis using 75 ml Isovue 370 intravenous contrast material. Coronal and sagittal reformations obtained. This CT examination was performed using the following dose reduction techniques: Automated exposure control, adjustment of mA and/or kv according to the patient's size, and use of iterative reconstruction technique. FINDINGS: The bilateral lung carrillo are relatively well aerated with minimal scattered scarring and small amounts of presumed posterior basilar and right middle lobe atelectasis. No significant consolidation, obvious nodule or mass lesion. No pleural effusion. No pneumothorax. Tracheobronchial tree is patent. Mediastinum demonstrates atherosclerotic changes to the thoracic aorta and coronary arteries. No adenopathy. Incidental small hiatal hernia. Musculoskeletal structures demonstrate degenerative changes without acute osseous abnormality. IMPRESSION: Minimal chronic findings and trace atelectasis. No suspicious consolidation, nodule or mass lesion. <Electronically signed by Al Richard > 08/16/20 0047
--- NOTE | 2020-08-16 14:49 | REP ---
INDICATION: RESTAGING MET RECTAL CA-WITH IV AND ORAL CONTRAST. COMPARISON: 05/11/2020 TECHNIQUE: Axial contrast-enhanced images from the lung bases to the pubic symphysis using oral and 100 cc Isovue 370 intravenous contrast material. Delayed images of the abdomen along with coronal and sagittal reformations obtained. This CT examination was performed using the following dose reduction techniques: Automated exposure control, adjustment of mA and/or kv according to the patient's size, and the use of iterative reconstruction technique. FINDINGS: Liver demonstrates diffuse fatty infiltration with presumed area of fatty sparing in the posterior aspect of the left hepatic lobe which is unchanged from prior examination. No further hepatic abnormalities are identified. Spleen, pancreas, bilateral adrenal glands and kidneys are normal. Evidence for prior cholecystectomy. The enteric system is without obstruction or acute inflammatory process. Pelvis demonstrates normal bladder and age-appropriate uterus/adnexa. No pelvic fluid. No ascites. No free air. No adenopathy. Atherosclerotic changes to the aorta noted without aneurysm or dissection. Surrounding musculoskeletal structures demonstrate degenerative changes without acute osseous abnormality. IMPRESSION: No acute abdominopelvic pathology appreciated. No evidence for recurrence or metastatic disease. <Electronically signed by Al Richard > 08/16/20 [id number]
== END ==
LOC: M RAD 11:51
PROVIDERS: ATTEND Internal Medicine Hematology & Oncology
DX: C20 Malignant neoplasm of rectum (principal); R19.7 Diarrhea, unspecified
CPT/HCPCS: 71260; 74177; Q9963; Q9967

== ENCOUNTER → 2020-11-10 | Outpatient (CLI) | payer BC ==
--- NOTE | 2020-11-15 04:13 | REP ---
INDICATION: RECTAL CANCER COMPARISON: Multiple examinations through 07/19/2016 TECHNIQUE: Axial contrast enhanced images from the thoracic inlet to the upper abdomen using 100 ml Isovue 370 intravenous contrast material followed by CT of the abdomen and pelvis. Coronal and sagittal reformations obtained. This CT examination was performed using the following dose reduction techniques: Automated exposure control, adjustment of mA and/or kv according to the patient's size, and use of iterative reconstruction technique. FINDINGS: The lung carrillo are well aerated. Respiratory motion artifact significantly limits evaluation. Relatively mild scattered chronic fibro atelectatic changes are suggested. Very small areas of opacity in the deep left sulcus and along the deep anterior margin of the right middle lobe is again appreciated which may be mildly increased from prior examinations. Findings less likely suggest active disease. No further parenchymal consolidation, or obvious nodule/mass. No effusion. No pneumothorax. Tracheobronchial tree is patent. No obvious axillary, hilar, or mediastinal adenopathy noted. Moderate stable atherosclerotic changes to the thoracic aorta and coronary arteries identified without aortic aneurysm or cardiomegaly. No pericardial effusion. The esophagus is again moderately air-filled/distended to the level of the gastroesophageal junction which is stable and essentially nonspecific. Surrounding musculoskeletal structures are intact. IMPRESSION: 1. Mildly progressive presumed fibroatelectatic changes in the deep anterior right middle lobe sulcus and along the left lower lobe. These findings much less likely represent active disease. 2. No further acute mediastinal or pleuroparenchymal process appreciated. No further consolidation, mass, effusion, or adenopathy. <Electronically signed by Al Richard > 11/15/20 [id number]
--- NOTE | 2020-11-15 04:29 | REP ---
INDICATION: RECTAL CANCER. COMPARISON: Multiple examinations dating through 07/19/2016. PET-CT dated 11/11/2019 TECHNIQUE: Axial contrast-enhanced images from the lung bases to the pubic symphysis using oral and 100 cc Isovue 370 intravenous contrast material. Delayed images of the abdomen along with coronal and sagittal reformations obtained. This CT examination was performed using the following dose reduction techniques: Automated exposure control, adjustment of mA and/or kv according to the patient's size, and the use of iterative reconstruction technique. FINDINGS: Liver again demonstrates fatty infiltration without focal hepatic lesion identified. Incidental area of focal fat sparing in the left hepatic lobe adjacent to the ligamentum is again noted and unchanged. Prior cholecystectomy. The spleen, pancreas, bilateral adrenal glands and kidneys are normal. The enteric system including stomach, small, and large bowel appears stable/normal. Area of prior resection and anastomosis at the rectosigmoid level appears normal.. Pelvis demonstrates normal bladder and uterus/adnexa. Prominent cervix is again noted and unchanged.. No ascites. No free air. No acute intraperitoneal or retroperitoneal adenopathy. Chronic calcified retroperitoneal/periaortic and pelvic lymph nodes are unchanged. Abdominal aorta and vasculature again demonstrate atherosclerotic changes without aneurysm or dissection. Musculoskeletal structures are intact and without acute osseous abnormality. IMPRESSION: 1. Hepatosteatosis with focal fatty sparing again noted. 2. No evidence for new mass lesion or metastatic disease. No acute adenopathy, ascites, or focal inflammatory stranding. <Electronically signed by Al Richard > 11/15/20 0429
== END ==
LOC: M RAD 11:17
PROVIDERS: ATTEND Internal Medicine Hematology & Oncology
DX: R19.7 Diarrhea, unspecified (principal); C20 Malignant neoplasm of rectum; K76.0 Fatty (change of) liver, not elsewhere classified; R91.8 Other nonspecific abnormal finding of lung field
CPT/HCPCS: 71260; 74177; Q9963; Q9967

== ENCOUNTER → 2021-03-01 | Outpatient (CLI) | payer BC ==
--- NOTE | 2021-03-01 19:06 | REP ---
INDICATION: RESTAGING METASTATIC RECTAL CA. COMPARISON: 11/10/2020, 08/16/2020 TECHNIQUE: BOLUS 100 ML ISOVUE 370 SCANNING THROUGH THE CHEST WITH CORONAL AND SAGITTAL RECONSTRUCTIONS PROVIDED. FINDINGS: Of the lung carrillo are well inflated. Some minor subsegmental atelectatic change medial segment right middle lobe at the anterior lung base. There is also some minimal atelectatic change inferior lingular segment at the anterior left lung base, stable there is no pleural effusion, parenchymal mass or acute infiltrate. There is some minor subsegmental atelectatic change deep sulcus lateral basal segment left lower lobe unchanged. Heart is not grossly enlarged. There is no specific chamber enlargement, pericardial thickening or effusion. There are some calcifications in coronary arteries. The aorta has calcifications at the arch and its descending portion without aneurysm or dissection. The main, right and left pulmonary arteries in the mediastinum are without filling defect. No pathologic sized mediastinal, hilar, axillary or supraclavicular adenopathy. The bone windows show the sternum, manubrium, medial clavicles, visualized portions of scapulae, humeral heads and ribs to be grossly intact. Bony thoracic spine region is unchanged without compression deformity or focal lesion. Marginal osteophytes at most endplates. Upper abdominal findings will be discussed in the CT abdomen pelvis report this date. IMPRESSION: 1. Some chronic atelectatic or fibrotic changes in the medial segment right middle lobe and inferior lingular segment the left anterior lung base as well as along the lateral basal segment of the left lower lobe but all stable. 2. No parenchymal nodule, acute infiltrate, mass, mediastinal or hilar adenopathy, acute bony destructive lesion or other significant finding. No evidence of intrathoracic metastatic disease. <Electronically signed by Jayesh Richardson > 03/01/21 [id number]
--- NOTE | 2021-03-01 19:48 | REP ---
INDICATION: RESTAGING METASTATIC RECTAL CA. COMPARISON: 11/10/2020, 08/16/2020, 05/11/2020 CT TECHNIQUE: Oral Gastrografin mixture per our bowel contrast protocol and bolus of 100 mL Isovue 370 scanning through the abdomen and pelvis. Coronal and sagittal reconstructions were provided and delayed imaging through the abdomen then performed. FINDINGS: CT abdomen: Liver is homogeneous in attenuation without discrete hepatic mass or intrahepatic biliary dilatation. No abnormal calcifications. Gallbladder absent. Spleen not enlarged and is also homogeneous. No ascites in the upper abdomen. Adrenal glands are normal. See no sign of hiatal hernia. Stomach filled with oral contrast and is unremarkable. Pancreas shows no mass, ductal dilatation or abnormal calcification. No peripancreatic adenopathy or fluid. Kidneys show extrarenal pelves bilaterally. No renal mass, cyst or stone. No perinephric fluid. Ureters show normal course to the bladder without filling defect or stone. The aorta has atherosclerotic calcifications without aneurysm. There are a few periaortic calcified nodes, unchanged. The abdominal portion of the colon is without colitis, diverticulitis or stricture. There is no appendix present. Ileocecal valve and terminal ileum unremarkable. No mesenteric inflammatory change or adenopathy. No ventral abdominal wall hernia evident. Bone windows show vacuum phenomena at L5-S1 with disc space narrowing from L3-4 through L5-S1 and facet arthropathy. No compression fracture or destructive lesions. Spondylosis also throughout the lower thoracic spine. Visualized ribs are intact. CT pelvis: The distal left colon and sigmoid are unremarkable. Anastomotic suture line at the rectosigmoid was intact. There is no pericolonic or perirectal inflammatory changes to suggest colitis. No diverticulitis. There is vascular calcification of the iliac and femoral arteries. There are stable coarse and densely calcified iliac nodes again seen with a large conglomerate heavily calcified sebastian complex to the left of midline and up to 3.3 cm in diameter seen on images 109-117 of series 205. There are few tiny deep pelvic nodes which are unchanged. No pathologic sized inguinal adenopathy or hernia and no ventral midline hernia. The bladder shows no wall thickening, mass or stone. Distal ureters without dilatation or stone. Contrast fills small bowel loops into the ileum but not into the cecum. Bone windows show the sacrum, SI joints pelvis and hips with some minor degenerative changes but no destructive lesion or fracture. IMPRESSION: 1. There is no CT evidence of local or remote recurrence/metastatic disease from her known rectal carcinoma. Anastomotic site was intact without inflammatory changes adjacent the fat or mass. No adenopathy of pathologic size the deep pelvis. Heavily calcified iliac nodes again seen and unchanged in the deep pelvis. 2. Liver and spleen without acute finding in the adrenal glands, kidneys, pancreas, stomach and small bowel loops unremarkable. No acute bony finding. Stable examination. <Electronically signed by Jayesh Richardson > 03/01/211943
== END ==
LOC: M RAD 15:49
PROVIDERS: ATTEND Physician Assistant
DX: C20 Malignant neoplasm of rectum (principal)
CPT/HCPCS: 71260; 74177; Q9963; Q9967

== ENCOUNTER → 2021-06-08 | Outpatient (CLI) | payer BC ==
--- NOTE | 2021-06-09 08:23 | REP ---
INDICATION: MALIGNANT NEOPLASM OF COLON. COMPARISON: 03/01/2021, 11/10/2020 TECHNIQUE: Bolus 100 mL Isovue 370 scanning through the chest with coronal and sagittal reconstructions. FINDINGS: CT abdomen stable chronic fibro atelectatic changes in the medial segment right middle lobe abutting the pleura as well as in the anterior left lung base, all unchanged. Lung carrillo are otherwise clear and without nodule, pleural effusion, acute infiltrate, parenchymal mass or pleural based mass. The heart is not enlarged. There is no pericardial thickening or effusion. Some coronary artery calcifications are noted. Calcifications aortic arch seen but no evidence of aneurysm or dissection. The main, right and left pulmonary arteries in the mediastinum are without filling defects. There is no pathologic sized mediastinal, hilar, axillary or supraclavicular adenopathy. Indwelling port catheter via the right jugular route again seen. Bone windows show the sternum, manubrium, visible clavicles, portions of scapulae, humeral heads and ribs included as well as thoracic spine and lower cervical region without destructive lesion or fractures. Some degenerative changes are seen as before. No definite hiatal hernia. Upper abdominal region will be discussed in the CT abdomen report this date. IMPRESSION: 1. Chronic bibasilar fibro atelectatic changes in the medial segment right middle lobe in the inferior lingular segment at the left anterior lung base and laterally in the left lower lobe, all stable. 2. No parenchymal nodule, acute infiltrate, mass, mediastinal or hilar adenopathy. No bony destructive lesion or other significant finding. I see no evidence of intrathoracic metastatic disease. Stable exam. <Electronically signed by Jayesh Richardson > 06/09/21 [id number]
--- NOTE | 2021-06-09 08:36 | REP ---
INDICATION: MAL JARVIS OF RECTUM. COMPARISON: 03/01/2021, 11/10/2020 TECHNIQUE: Oral Gastrografin mixture 10 mL in 290 mL flavored water for 2 doses per our bowel contrast protocol. Bolus of 100 mL Isovue 370 scanning through the abdomen and pelvis with delayed images through the abdomen. Coronal and sagittal reconstructions provided. FINDINGS: CT abdomen: The liver is homogeneous and without focal hepatic mass, intrahepatic biliary dilatation or adjacent ascites. Left lobe is mildly prominent but the contours of the liver are smooth. There is no gross hepatomegaly. No splenomegaly or focal splenic lesion identified. Gallbladder is surgically absent. Stomach was unremarkable. Pancreas is intact. Adrenal glands are normal. There are extrarenal pelves in the kidneys bilaterally as before. No definite stone, renal mass, cyst or hydronephrosis. No hydroureter or ureteral stone. Small bowel loops are contrast filled but without dilatation, wall thickening or mesenteric edema adjacent. Heavy atherosclerotic calcifications in the aorta iliac vessels without aneurysm. There are periaortic, aortocaval and iliac lymph nodes that are heavily calcified and unchanged no pathologic sized periaortic, mesenteric or other retroperitoneal lymphadenopathy. Lung window review of all CT slices shows no perforation or free air in the abdomen or pelvis. No ventral hernia or abdominal wall mass. The bone windows show degenerative disc changes in the lower thoracic and lumbar spines with facet arthropathy but no compression fracture, destructive lesions or new findings. Visualized lower ribs intact. CT pelvis: Sacrum, SI joints, pelvis and hips with some minor degenerative changes but no destructive lesions or fractures. Bladder is partially filled and has some mild wall thickening which could be due to under filling, post radiation change or other cause for chronic cystitis. There is no mass, stone or dilated distal ureter/ureteral stone visible. No ventral or inguinal hernia. No inguinal adenopathy. Large 3.3 cm heavily calcified conglomerate iliac nodes to the left of midline in the presacral region, stable. Other scattered calcified inguinal nodes are also present as before. The uterus not enlarged. No pelvic mass or free fluid. Anastomotic suture line in the rectum is unchanged. No gross abnormality, adjacent adenopathy or mass. IMPRESSION: 1. No CT evidence of local or remote recurrence/metastatic disease from her known rectal carcinoma. The anastomotic site was intact without inflammatory changes or adenopathy in the adjacent fat. No mass. Heavily calcified iliac nodes again seen and unchanged without pathologic sized nodes in the deep pelvis or inguinal region. 2. The liver, spleen, adrenal glands pancreas stomach and small bowel loops were unremarkable. Kidneys show extrarenal pelves bilaterally right greater than left but no definite hydronephrosis or mass. Stable exam. <Electronically signed by Jayesh Richardson > 06/09/21 0832
== END ==
LOC: M RAD 15:22
PROVIDERS: ATTEND Internal Medicine Hematology & Oncology
DX: C20 Malignant neoplasm of rectum (principal)
CPT/HCPCS: 71260; 74177; Q9963; Q9967

== ENCOUNTER → 2021-09-01 | Outpatient (CLI) | payer BC | LOC: M RAD 12:52 | PROVIDERS: ATTEND Internal Medicine Hematology & Oncology | DX: C20 Malignant neoplasm of rectum (principal); R19.7 Diarrhea, unspecified | CPT/HCPCS: 71260; 74177; Q9963; Q9967 ==

== ENCOUNTER → 2021-12-19 | Outpatient (CLI) | payer MEDICARE | LOC: M RAD 12:49 | PROVIDERS: ATTEND Internal Medicine Hematology & Oncology | DX: C20 Malignant neoplasm of rectum (principal); R19.7 Diarrhea, unspecified; M51.26 Other intervertebral disc displacement, lumbar region | CPT/HCPCS: 71260; 74177; Q9963; Q9967 ==

== ENCOUNTER → 2022-05-18 | Outpatient (CLI) | payer MEDICARE, BC ==
[~2022-05-18] MED LIST changes: -GASTROGRAFIN SOLUTION 30ML (Q9963) As Ordered ONE
== END ==
LOC: M RAD 12:43
PROVIDERS: ATTEND Internal Medicine Hematology & Oncology
DX: C18.9 Malignant neoplasm of colon, unspecified (principal)
CPT/HCPCS: 74170; Q9967

== ENCOUNTER → 2022-10-11 | Outpatient (CLI) | payer MEDICARE, BC | LOC: M RAD 13:17 | PROVIDERS: ATTEND Internal Medicine Hematology & Oncology | DX: C77.2 Secondary and unspecified malignant neoplasm of intra-abdominal lymph nodes (principal); C20 Malignant neoplasm of rectum; R19.7 Diarrhea, unspecified | CPT/HCPCS: 71260; 74177; Q9967 ==

== ENCOUNTER → 2022-12-14 | Outpatient (CLI) | payer MEDICARE, BC ==
[~2022-12-14] MED LIST changes: +GASTROGRAFIN SOLUTION 30ML As Ordered ONE
== END ==
LOC: M RAD 11:34
PROVIDERS: ATTEND Internal Medicine Hematology & Oncology
DX: C20 Malignant neoplasm of rectum (principal); C77.2 Secondary and unspecified malignant neoplasm of intra-abdominal lymph nodes; J01.90 Acute sinusitis, unspecified
CPT/HCPCS: 71260; 74177; Q9963; Q9967

== ENCOUNTER → 2023-02-28 | Outpatient (CLI) | payer MEDICARE, BC | LOC: M RAD 13:43 | PROVIDERS: ATTEND Internal Medicine Hematology & Oncology | DX: C77.2 Secondary and unspecified malignant neoplasm of intra-abdominal lymph nodes (principal); L03.313 Cellulitis of chest wall; E87.6 Hypokalemia; R19.7 Diarrhea, unspecified; C20 Malignant neoplasm of rectum; E86.0 Dehydration; J01.90 Acute sinusitis, unspecified | CPT/HCPCS: 71260; 74177; Q9963; Q9967 ==

== ENCOUNTER → 2023-04-25 | Outpatient (REF) | payer MEDICARE, BC ==
[2023-04-25 18:13] LABS: BASO % 0.9 % (0.0-1.0); EOS # 0.3 10^3/uL (0.0-0.5); EOS % 6.5 % (0.0-3.0); HEMATOCRIT 36.6 % (36.0-47.0); HEMOGLOBIN 11.7 g/dl (12.0-15.5); LYMPH # 0.5 10^3/uL (1.5-5.0); LYMPH % 10.2 % (24.0-44.0); MEAN CORPUSCULAR HEMOGLOBIN 29.6 pg (27.0-33.0); MEAN CORPUSCULAR VOLUME 92.7 fl (80.0-96.0); MONO # 0.7 10^3/uL (0.0-0.8); MONO % 16.1 % (2.0-8.0); NEUTROPHILS % 65.6 % (36.0-66.0); PLATELET COUNT, AUTOMATED 226 10^3/uL (150-450); RED BLOOD COUNT 3.95 10^6/uL (4.00-5.40); WHITE BLOOD COUNT 4.6 10^3/uL (4.0-10.0)
[2023-04-25 18:47] LABS: ALBUMIN 3.3 G/DL (3.2-5.2); ALKALINE PHOSPHATASE 86 U/L (46-116); ALT/SGPT 28 U/L (7.0-40); AST/SGOT 23 U/L (<34); BILIRUBIN,TOTAL 0.3 MG/DL (0.3-1.2); BLOOD UREA NITROGEN 9 MG/DL (9-23); CALCIUM LEVEL 8.9 MG/DL (8.3-10.6); CARBON DIOXIDE LEVEL 34 MMOL/L (20-31); CHLORIDE LEVEL 101 MMOL/L (98-107); CREATININE FOR GFR 0.64 MG/DL (0.55-1.30); GLOMERULAR FILTRATION RATE > 60.0 (>45); GLUCOSE, FASTING 100 MG/DL (74-106); POTASSIUM SERUM 3.3 MMOL/L (3.5-5.1); SODIUM LEVEL 142 MMOL/L (136-145); TOTAL PROTEIN 6.3 G/DL (5.7-8.2)
[2023-04-25 19:40] LABS: CARCINOEMBRYONIC ANTIGEN < 2.0 NG/ML (<2.5)
== END ==
LOC: M LABDRAWC 17:15
PROVIDERS: ATTEND Internal Medicine Hematology & Oncology
DX: C77.2 Secondary and unspecified malignant neoplasm of intra-abdominal lymph nodes (principal); C20 Malignant neoplasm of rectum; L03.313 Cellulitis of chest wall; E86.0 Dehydration; E87.6 Hypokalemia; J01.90 Acute sinusitis, unspecified; R19.7 Diarrhea, unspecified

== ENCOUNTER → 2023-05-08 | Outpatient (CLI) | payer MEDICARE, BC | LOC: M RAD 12:38 | PROVIDERS: ATTEND Internal Medicine Hematology & Oncology | DX: C77.2 Secondary and unspecified malignant neoplasm of intra-abdominal lymph nodes (principal); C20 Malignant neoplasm of rectum; L03.313 Cellulitis of chest wall; E86.0 Dehydration; E87.6 Hypokalemia; J01.90 Acute sinusitis, unspecified; R19.7 Diarrhea, unspecified | CPT/HCPCS: 71260; 74177; Q9963; Q9967 ==

== ENCOUNTER → 2023-09-28 | Outpatient (CLI) | payer MEDICARE | LOC: M RAD 10:48 | PROVIDERS: ATTEND Internal Medicine Hematology & Oncology | DX: C77.2 Secondary and unspecified malignant neoplasm of intra-abdominal lymph nodes (principal); C20 Malignant neoplasm of rectum; L03.313 Cellulitis of chest wall; E86.0 Dehydration | CPT/HCPCS: 71260; 74177; Q9963; Q9967 ==

== ENCOUNTER → 2023-12-28 | Outpatient (CLI) | payer MEDICARE ==
[~2023-12-28] MED LIST changes: -GASTROGRAFIN SOLUTION 30ML As Ordered ONE
== END ==
LOC: M RAD 14:47
PROVIDERS: ATTEND Nurse Practitioner Family
DX: M54.50 Low back pain, unspecified (principal); R11.2 Nausea with vomiting, unspecified; E86.0 Dehydration; C77.2 Secondary and unspecified malignant neoplasm of intra-abdominal lymph nodes; R19.7 Diarrhea, unspecified; C20 Malignant neoplasm of rectum; L03.313 Cellulitis of chest wall; E87.6 Hypokalemia; J01.90 Acute sinusitis, unspecified; R91.8 Other nonspecific abnormal finding of lung field
CPT/HCPCS: 74178; Q9967

== ENCOUNTER → 2024-01-24 | Outpatient (CLI) | payer MEDICARE ==
[~2024-01-24] MED LIST changes: +GASTROGRAFIN SOLUTION 30ML As Ordered ONE
== END ==
LOC: M RAD 11:01
PROVIDERS: ATTEND Nurse Practitioner Family
DX: R11.2 Nausea with vomiting, unspecified (principal); E86.0 Dehydration; C77.2 Secondary and unspecified malignant neoplasm of intra-abdominal lymph nodes; R19.7 Diarrhea, unspecified; C20 Malignant neoplasm of rectum; L03.313 Cellulitis of chest wall; E87.6 Hypokalemia; J01.90 Acute sinusitis, unspecified
CPT/HCPCS: 71260; 74177; Q9963; Q9967

== ENCOUNTER → 2024-06-02 | Outpatient (CLI) | payer MEDICARE | LOC: M RAD 07:17 | PROVIDERS: ATTEND Internal Medicine Hematology & Oncology | DX: C20 Malignant neoplasm of rectum (principal); C78.00 Secondary malignant neoplasm of unspecified lung; I10 Essential (primary) hypertension; M54.50 Low back pain, unspecified; R11.2 Nausea with vomiting, unspecified; L03.313 Cellulitis of chest wall; E86.0 Dehydration; E87.8 Other disorders of electrolyte and fluid balance, not elsewhere classified; J01.90 Acute sinusitis, unspecified; C77.2 Secondary and unspecified malignant neoplasm of intra-abdominal lymph nodes; R19.7 Diarrhea, unspecified | CPT/HCPCS: 74177; Q9963; Q9967 ==

== ENCOUNTER → 2024-06-05 | Outpatient (CLI) | payer MEDICARE | LOC: M RAD 15:56 | PROVIDERS: ATTEND Internal Medicine Hematology & Oncology | DX: C78.00 Secondary malignant neoplasm of unspecified lung (principal); C20 Malignant neoplasm of rectum; C77.2 Secondary and unspecified malignant neoplasm of intra-abdominal lymph nodes | CPT/HCPCS: 71260; Q9967 ==

== ENCOUNTER → 2024-08-20 | Outpatient (CLI) | payer MEDICARE | LOC: M RAD 09:37 | PROVIDERS: ATTEND Internal Medicine Pulmonary Disease | DX: R91.8 Other nonspecific abnormal finding of lung field (principal) ==

== ENCOUNTER → 2024-08-25 | Outpatient (CLI) | payer MEDICARE ==
[~2024-08-25] MED LIST changes: +AMLO1TAB24 PO; +ASPI81TA26 PO; +ATOR1TAB19 PO; -GASTROGRAFIN SOLUTION 30ML As Ordered ONE; +IRBE150T27 PO; -ISOVUE-370 76% 100ML VIAL As Ordered ONE; +OMEP-173 PO; +ONDA-84 PO
[2024-08-25 11:56] LABS: PLATELET COUNT, AUTOMATED 206 10^3/uL (150-450)
[2024-08-25 12:09] LABS: INR 1.13; PARTIAL THROMBOPLASTIN TIME 25.2 SECONDS (24.8-34.2); PROTHROMBIN TIME 14.8 SECONDS (12.5-14.5)
== END ==
LOC: M LAB 10:42
PROVIDERS: ATTEND Internal Medicine Pulmonary Disease
DX: R91.8 Other nonspecific abnormal finding of lung field (principal)

== ENCOUNTER 2024-08-27 07:02 | Day surgery (SDC) | payer MEDICARE ==
[~2024-08-27] VITALS: Ht 172.7 cm; Wt 106.8 kg
[2024-08-27] MEDS ORDERED: MIDAZOLAM INJ 2MG/2ML VIAL As Ordered ONE (08:16)
[2024-08-27] MEDS ORDERED: fentaNYL 100 MCG/2 ML INJECTION As Ordered ONE (08:16)
[2024-08-27] MEDS ORDERED: LIDOCAINE 2% 100MG/5ML SDV (FOR ANES.) As Ordered ONE (08:17)
[2024-08-27] MEDS ORDERED: SUGAMMADEX SODIUM 500 MG/5 ML VIAL (BRIDION) As Ordered ONE (08:17)
[2024-08-27] MEDS ORDERED: propofoL 200 MG/20 ML VIAL As Ordered ONE (08:17)
[2024-08-27] MEDS ORDERED: ROCURONIUM BROMIDE 50MG/5ML VIAL As Ordered ONE (08:17)
[2024-08-27] MEDS ORDERED: ONDANSETRON 4MG 2ML VIAL As Ordered ONE (08:17)
[2024-08-27] MEDS: LIDOCAINE PRES-FREE 2% 10ML AMP INH ONE (09:09)
[2024-08-27] MEDS: ALBUTEROL SULFATE 2.5MG/0.5ML INH NEB SOLN INH ONE (09:09)
[2024-08-27] MEDS: LR 1,000 ML IV SCH (09:09)
[2024-08-27] MEDS: CETACAINE SPRAY 5GM As Ordered ONE (09:51)
[2024-08-27] MEDS: EPINEPHrine 1MG/10ML SYRINGE 1.5IN As Ordered ONE (10:00)
[2024-08-27] MEDS ORDERED: ePHEDrine SULFATE 25 MG/5 ML(5MG/ML) SYRINGE As Ordered ONE (10:02)
[2024-08-27] MEDS ORDERED: MORPHINE 2 MG/ML 1ML VIAL IV PRN (10:30)
[2024-08-27] MEDS ORDERED: ONDANSETRON 4MG 2ML VIAL IV PRN (10:30)
[2024-08-27] MEDS ORDERED: oxyCODONE 5MG TAB PO PRN (10:30)
[2024-08-27] MEDS ORDERED: fentaNYL 100 MCG/2 ML INJECTION IV PRN (10:30)
[2024-08-27 11:15] VITALS: BP 134/60; TEMP 97.4; O2SAT 95
== END 2024-08-27 11:25 | disposition home or self-care (01) ==
LOC: M SDC 07:02
PROVIDERS: ATTEND Internal Medicine Pulmonary Disease
DX: C78.01 Secondary malignant neoplasm of right lung (principal); C80.1 Malignant (primary) neoplasm, unspecified; I10 Essential (primary) hypertension; E78.00 Pure hypercholesterolemia, unspecified; Z79.82 Long term (current) use of aspirin; Z79.899 Other long term (current) drug therapy; Z85.038 Personal history of other malignant neoplasm of large intestine; Z92.21 Personal history of antineoplastic chemotherapy; Z92.3 Personal history of irradiation; Z87.891 Personal history of nicotine dependence; K21.9 Gastro-esophageal reflux disease without esophagitis; Z91.013 Allergy to seafood; Z88.0 Allergy status to penicillin; Z88.8 Allergy status to other drugs, medicaments and biological substances; Z90.89 Acquired absence of other organs; Z90.721 Acquired absence of ovaries, unilateral
CPT/HCPCS: 31628; 31652; 71045; 76000; 88305; C1601; J0171; J1100; J2250; J2405; J3010

== ENCOUNTER → 2024-09-30 | Outpatient (CLI) | payer MEDICARE ==
[~2024-09-30] MED LIST changes: +GASTROGRAFIN SOLUTION 30ML As Ordered ONE; +ISOVUE-370 76% 100ML VIAL As Ordered ONE
== END ==
LOC: M RAD 06:27
PROVIDERS: ATTEND Nurse Practitioner Family
DX: C20 Malignant neoplasm of rectum (principal); C78.01 Secondary malignant neoplasm of right lung; Z90.49 Acquired absence of other specified parts of digestive tract; I25.10 Atherosclerotic heart disease of native coronary artery without angina pectoris; I51.7 Cardiomegaly; I70.0 Atherosclerosis of aorta; K44.9 Diaphragmatic hernia without obstruction or gangrene; C78.02 Secondary malignant neoplasm of left lung
CPT/HCPCS: 71260; 74177; Q9963; Q9967